=== PATIENT | male | born 1995 | race Caucasian/White ===

== ENCOUNTER 2018-07-23 12:14 | Emergency (ER) | payer OTHER ==
[~2018-07-23] VITALS: Ht 182.9 cm; Wt 85.3 kg
--- NOTE | 2018-07-23 12:41 | NUR ---
Patient discharged to home in stable conditon & brisk steady gait. Written and verbal after care instructions given to patient. Patient verbalizes understanding of instructions.
== END 2018-07-23 12:42 | disposition home or self-care (01) ==
LOC: ER 12:14
DX: B34.9 Viral infection, unspecified (principal)
CPT/HCPCS: A4663